=== PATIENT | female | born 1980 | race Caucasian/White ===

== ENCOUNTER 2018-04-08 16:49 | Emergency (ER) | payer OTHER ==
[~2018-04-08] VITALS: Ht 175.3 cm; Wt 115.7 kg
[2018-04-08] MEDS ORDERED: DAYTIME COLD M1 EACH PO (16:58)
[2018-04-08 17:20] LABS: ABSOLUTE BASOPHILS 0.1 thou/uL (0.0-0.2); ABSOLUTE EOSINOPHILS 0.3 thou/uL (0.0-0.7); ABSOLUTE LYMPHOCYTES 2.3 thou/uL (0.8-5.3); ABSOLUTE MONOCYTES 0.6 thou/uL (0.0-1.2); ABSOLUTE NEUTROPHILS 6.9 thou/uL (1.6-8.1); BASOPHILS 0.8 %; EOSINOPHILS 2.6 %; HEMATOCRIT 41.1 % (37.0-47.0); HEMOGLOBIN 13.6 gm/dL (12.0-15.0); LYMPHOCYTES 22.6 %; MCHC 33.2 g/dL (28.0-37.0); MCV 84.3 fL (80.0-100.0); MONOCYTES 5.6 %; MPV 7.9 fl. (7.2-11.1); NUCLEATED RBCS 0 /100WBC; PLATELET COUNT* 313 thou/uL (150-400); POLYS 68.4 %; RBC 4.88 mil/uL (4.20-5.00); RDW-CV 13.4 % (10.5-14.5); WBC 10.1 thou/uL (4.0-11.0)
[2018-04-08 17:27] LABS: ANION GAP 10 mmol/L (7-16); BUN 9 mg/dL (7-18); CALCIUM 8.5 mg/dL (8.5-10.1); CHLORIDE 102 mmol/L (98-107); CO2 26 mmol/L (21-32); CREATININE 0.9 mg/dL (0.6-1.3); GLUCOSE 100 mg/dL (70-99); POTASSIUM 3.5 mmol/L (3.5-5.1); SODIUM 138 mmol/L (136-145)
[2018-04-08 17:30] LABS: APTT 30.8 Seconds (25.0-31.3); PROTIME 10.3 Seconds (9.20-11.50)
[2018-04-08 17:38] LABS: ALBUMIN 3.7 g/dL (3.4-5.0); ALKALINE PHOSPHATASE 86 U/L (46-116); LIPASE 112 U/L (73-393); NT-PRO BRAIN NAT PEPTIDE 13 pg/mL (<300); SGOT 36 U/L (15-37); SGPT 56 U/L (30-65); TOTAL BILIRUBIN 0.3 mg/dL (<0.1-1.0); TOTAL PROTEIN 7.6 g/dL (6.4-8.2); TROPONIN-I LEVEL <0.06 ng/mL (<0.06)
[2018-04-08 17:49] LABS: URINE BILIRUBIN NEGATIVE (Negative); URINE BLOOD TRACE (Negative); URINE CLARITY CLEAR; URINE COLOR YELLOW; URINE GLUCOSE-RANDOM NEGATIVE (Negative); URINE KETONES TRACE (Negative); URINE LEUKOCYTES-REFLEX 1+ (Negative); URINE NITRITE-REFLEX NEGATIVE (Negative); URINE PROTEIN NEGATIVE (Negative); URINE UROBILINOGEN 0.2 E.U./dl (0.2-1.0)
[2018-04-08 17:57] LABS: BACTERIA-REFLEX >30 Many /HPF (None Seen); MUCUS None Seen strn/LPF (None Seen); SQUAMOUS >10 Many /LPF (0-3)
[2018-04-08 17:58] LABS: URINE WBC-REFLEX 0-5 Rare /HPF (0-5)
[2018-04-08 17:59] LABS: CASTS None Seen /LPF (None Seen); CRYSTALS None Seen /LPF (None Seen); URINE RBC 0-2 Rare /HPF (0-2)
[2018-04-08] MEDS ORDERED: MEDROLDOSEPACK PO (18:25)
[2018-04-08] MEDS ORDERED: FLONASE 0.05%50 MCG NASAL (18:26)
[2018-04-08 18:37] VITALS: BP 121/68
--- NOTE | 2018-04-09 12:47 | EKG ---
[place] [address] ELECTROCARDIOGRAM REPORT Name: YAAKOV MONTOYA Room: [facility]#: [id number] Admission: 04/08/18 Attend Phys: Discharge: 04/08/18 Date of : 82 Report #: [id number] THIS REPORT FOR: //name// [facility] ED Test Date: 2018-04-08 Test Time: 16:56:22 Pat Name: YAAKOV MONTOYA Department: Room: Gender: F Maxillofacial Pathology: Chandler MIGUEL : 1980 Requested By: Bernadette Campbell Order Number: [id number] MD: Anshu Mayr Measurements Intervals [place] Rate: 86 P: 78 [place]: 137 QRS: 52 QRSD: 97 T: 49 QT: 353 QTc: 423 Interpretive Statements Sinus rhythm No previous ECG available for comparison Electronically Signed On 04-09-2018 12:47:00 CDT by Anshu Mary [email or web address] <ELECTRONICALLY SIGNED> By: Anshu Mary MD, [facility] 04/09/18 1247 [id number] 1656 Anshu Mary MD, FACC /EPI
== END 2018-04-08 18:40 | disposition home or self-care (01) ==
LOC: M.ERS 16:49
PROVIDERS: Nurse Practitioner
DX: J32.2 Chronic ethmoidal sinusitis (principal); Z88.6 Allergy status to analgesic agent; Z88.5 Allergy status to narcotic agent